=== PATIENT | male | born 1930 | race Caucasian/White ===

== ENCOUNTER 2017-08-22 16:16 | Outpatient (CLI) | payer MEDICARE, OTHER ==
[2015-04-20 23:36] VITALS: BP 164/93
[2017-08-22 16:43] LABS: eGFR (African) > 60; eGFR (Non-African) > 60
== END 2017-08-22 16:17 ==
LOC: LABRHC 16:16
PROVIDERS: ATTEND Family Medicine
DX: R73.9 Hyperglycemia, unspecified (principal)
CPT/HCPCS: 36415; 80053; 83036

== ENCOUNTER 2017-12-20 21:31 | Emergency (ER) | payer MEDICARE, OTHER ==
--- NOTE | 2017-12-20 21:39 | ED Physician Documentation ---
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 he did take one of his ' s pain medications (he is not sure what the medication is) then he took another 2 meds at 430. He states there is more pain with extension. 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 No loss of sensation.) - ROS CONST: no problems CVS/RESP: denies: shortness of breath, cough MS/SKIN/LYMPH: denies: neck pain, rash - PAST HX Past History: other (hypertension, ) Immunizations: UTD Allergies/Adverse Reactions: Allergies Allergy/AdvReac Type Severity Reaction Status Date / Time No Known Drug Allergies Allergy Verified 12/20/17 22:19 Home Medications: Ambulatory Orders Medication Instructions Recorded Duloxetine HCl [Cymbalta] 20 mg PO DAILY 12/20/17 Gabapentin [Neurontin] 300 mg PO TID 12/20/17 - SOCIAL HX Smoking History: non-smoker Alcohol Use: none Drug Use: none - FAMILY HX Family History: none - VITAL SIGNS Vital Signs: Vital Signs Temp Pulse Resp BP Pulse Ox 98.1 F 74 18 128/74 98 12/20/17 22:44 12/20/17 22:44 12/20/17 22:44 12/20/17 22:44 12/20/17 21:31 - REVIEWED ASSESSMENTS Nursing Assessment Reviewed: No Vitals Reviewed: No ED Results Lab/Radiology - Radiology Radiology Impressions: 3 views of the left elbow History: Pain in Left elbow radiating up to shoulder x 1 day, no known injury No prior comparison studies No obvious evidence of acute fracture or dislocation of the left elbow. Degenerative changes and osteophytes are noted at the elbow joint. Cortical thickening of the right radial shaft. 4 mm well corticated osseous density adjacent to the radial head may be related to prior the injury versus soft tissue calcification. Impression: No obvious evidence of acute fracture or dislocation. Extensive degenerative changes. Mild soft tissue swelling Electronically signed on Dec 20, 2017 10:37:51 PM CDT by: Dulce Maria Farfan - Orders Orders: ED Orders Category Date Time Status Sling to Affected Extremity 1T Care 12/20/17 22:43 Active ELBOW 3 VIEWS [RAD] Stat Exams 12/20/17 Completed Ketorolac Tromethamine [Toradol] Med 12/20/17 21:55 Discontinued 60 mg IM NOW ONE methylPREDNISolone ACETATE [Depo-Medrol] Med 12/20/17 21:55 Discontinued 80 mg IM NOW ONE oxyCODONE HCL/ACETAMINOPHEN [Percocet 5-325 mg Tablet] Med 12/20/17 22:47 Discontinued 2 each PO .STK-MED ONE oxyCODONE HCL/ACETAMINOPHEN [Percocet 5-325 mg Tablet] Med 12/20/17 22:46 Discontinued 2 each PO NOW ONE Upper Extremity Injury Physic - Physical Exam General Appearance: no acute distress, alert Hand: normal inspection, non-tender, no evidence of injury, normal ROM Wrist: normal inspection, non-tender, no evidence of injury, normal ROM Elbow/Forearm: normal ROM, bone tenderness, swelling Shoulder: normal inspection, non-tender, no evidence of injury Neuro/Vascular/Tendon: no vascular compromise Skin: warm,dry Resp/CVS: chest non-tender, breath sounds nml, heart sounds nml, no resp. distress, lungs clear, reg. rate & rhythm Abdomen: non-tender Discharge Clincal Impression: Elbow pain, left Referrals: Ari Thompson MD [Primary Care Provider] - 2 Days Comments: 1. Follow up with ortho in am 2. Continue pain meds 3. Ice 4. Return to ER for any increased pain or concerns Condition: Stable Disposition: 01 HOME, SELF-CARE Decision to Admit: NO Date of Decison to Admit: 12/20/17 Decision Time: 22:42
[2017-12-20] MEDS ORDERED: methylPREDNISolone ACETATE 80 MG/ML VIAL IM ONE (21:55)
[2017-12-20] MEDS ORDERED: KETOROLAC TROMETHAMINE 60 MG/2 ML VIAL IM ONE (21:55)
[2017-12-20] MEDS ORDERED: oxyCODONE/ACETAMINOPHEN 5/325 TABLET PO ONE ×2 (22:46→22:47)
[2017-12-20 23:01] VITALS: BP 128/74
--- NOTE | 2017-12-20 23:07 | Diagnostic Imaging Report ---
LOS TORRES [facility] [address] [facility] [address] [place], [place]. [address] Report Submission Date: Dec 20, 2017 10:37:51 PM CDT Patient Study Name: DAVID JIANG Date: Dec 20, 2017 10:04:24 PM CDT Modality Type: DX Gender: M Description: UPPER EXTREMITY : 34 Institution: [facility] Physician: LOS TORRES 3 views of the left elbow History: Pain in Left elbow radiating up to shoulder x 1 day, no known injury No prior comparison studies No obvious evidence of acute fracture or dislocation of the left elbow. Degenerative changes and osteophytes are noted at the elbow joint. Cortical thickening of the right radial shaft. 4 mm well corticated osseous density adjacent to the radial head may be related to prior the injury versus soft tissue calcification. Impression: No obvious evidence of acute fracture or dislocation. Extensive degenerative changes. Mild soft tissue swelling Electronically signed on Dec 20, 2017 10:37:51 PM CDT by: Dulce Maria RAMOS
== END 2017-12-20 22:44 | disposition home or self-care (01) ==
LOC: ED 21:31
DX: M25.522 Pain in left elbow (principal)
CPT/HCPCS: 73080; J1040; J1885; 96372; 99283

== ENCOUNTER 2019-02-25 17:00 | Outpatient (CLI) | payer MEDICARE, OTHER ==
[2019-03-10] MEDS ORDERED: HYDROcodone /APAP 5/325 1 EACH TABLET ONE (05:15)
== END 2019-02-25 17:05 | disposition home or self-care (01) ==
LOC: LABRHC 17:00
PROVIDERS: ATTEND Nurse Practitioner Family
DX: N39.0 Urinary tract infection, site not specified (principal); B96.4 Proteus (mirabilis) (morganii) as the cause of diseases classified elsewhere; Z16.24 Resistance to multiple antibiotics
CPT/HCPCS: 87086

== ENCOUNTER 2019-05-12 14:27 | Outpatient (CLI) | payer MEDICARE, OTHER ==
[2019-03-27 08:25] VITALS: BP 161/82
[2019-05-12 14:37] LABS: BASOPHILS % 0.6 % (0.0-1.5)
[2019-05-12 14:38] LABS: NEUTROPHILS # 4.3 # k/uL (1.4-7.7)
[2019-05-12 14:43] LABS: eGFR (Non-African) > 60
== END 2019-05-12 14:30 ==
LOC: LABRHC 14:27
PROVIDERS: ATTEND Family Medicine
DX: R32 Unspecified urinary incontinence (principal)
CPT/HCPCS: 36415; 80053; 85025; 85651; 86140; 87086

== ENCOUNTER 2019-07-27 15:34 | Emergency (ER) | payer MEDICARE, OTHER ==
--- NOTE | 2019-07-27 15:46 | ED Physician Documentation ---
Ear Complaints - HISTORIAN Historian: patient - HPI Stated Complaint: left ear pain and feels little dizzy with fast head movement Chief Complaint: Ear Complaints Timing: still present Location of Pain: L ear Severity: moderate Associated Symptoms: sharp pain, aching, hearing loss, dizziness. denies: fever, chills, discharge Further Comments: yes (HE states he has had ear pain/dizziness for three days - the dizziness is when he moves his head fast. No fever. He also states he had that "blood infection" and while he is here would like his blood checked. No fever.) - ROS CONST: no problems - PAST HX Past History: other (HTN ) Immunizations: UTD Allergies/Adverse Reactions: Allergies Allergy/AdvReac Type Severity Reaction Status Date / Time No Known Drug Allergies Allergy Verified 07/27/19 15:48 Home Medications: Ambulatory Orders Medication Instructions Recorded Ascorbic Acid [Vitamin C] 500 mg PO BID tablet 03/26/19 Aspirin [Max] 81 mg PO DAILY tab.chew 03/26/19 Calcium Carb 500/Vit D 200 2 each PO DAILY tablet 03/26/19 [CALTRATE WITH VIT D] Docusate Sodium [Colace] 100 mg PO BID #180 capsule 03/26/19 Gabapentin 900 mg PO BID #90 tablet 03/26/19 Multivitamin [Tab-A-William] 1 each PO DAILY tablet 03/26/19 DULoxetine HCL [Cymbalta] 30 mg PO DAILY 03/27/19 Docusate Sodium [Colace] 100 mg PO DAILY 03/27/19 Metoprolol Tartrate [Lopressor] 50 mg PO DAILY 03/27/19 - SOCIAL HX Smoking History: non-smoker Alcohol Use: none Drug Use: none - FAMILY HX Family History: No - VITAL SIGNS Vital Signs: Vital Signs Temp Pulse Resp BP Pulse Ox 161/82 03/27/19 08:24 - REVIEWED ASSESSMENTS Nursing Assessment Reviewed: Yes Vitals Reviewed: Yes Progress - Progress Progress: Discussed findings and plan - follow up with Dr Thompson if no improvement DG Ear Complaint Physical Exam - EXAM General Appearance: no acute distress, alert 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 distress, lungs clear, reg. rate & rhythm Abdomen: non-tender Skin: nml color, no skin rash Neuro/Psych: oriented x3, mood/affect nml Discharge Clincal Impression: Left otitis media Qualifiers: Otitis media type: allergic Chronicity: acute Recurrence: non-recurrent Qualified Code(s): H65.112 - Acute and subacute allergic otitis media (mucoid) (sanguinous) (serous), left ear Referrals: Ari Thompson MD [Primary Care Provider] - 2 Days Comments: 1. Amoxicillin 875 mg take 1 by mouth twice daily x 10 days 2. Ciprodex ear drops 2 drops in left ear three times per day x 7 days 3. Move slowly 4. Increase fluids 5. Follow up with PCP in 2 days 6. return to ER for any increased concerns Condition: Stable Disposition: 01 HOME, SELF-CARE Decision to Admit: NO Date of Decison to Admit: 07/27/19 Decision Time: 16:01
[2019-07-27 15:51] VITALS: BP 131/58
[2019-07-27 16:07] LABS: BASOPHILS % 0.5 % (0.0-1.5)
[2019-07-27 16:08] LABS: NEUTROPHILS # 5.4 # k/uL (1.4-7.7)
== END 2019-07-27 16:40 | disposition home or self-care (01) ==
LOC: ED 15:34
DX: H65.112 Acute and subacute allergic otitis media (mucoid) (sanguinous) (serous), left ear (principal)
CPT/HCPCS: 36415; 85025; 99281; 99282